=== PATIENT | male | born 1945 | race Caucasian/White ===

== ENCOUNTER → 2018-06-11 | Day surgery (SDC) | payer MEDICARE, BC ==
[2018-06-07 09:44] VITALS: BMI 28.0
--- NOTE | 2018-06-10 21:27 | HP ---
HISTORY OF PRESENT ILLNESS: Mr. Sharp is a pleasant 72-year-old man presenting for discussion of in termittent severe right lower back, buttock, and posterior thigh pain that are brought on with travel and prolonged sitting. He has an MRI from the [facility] [place] reveals calcified disk and osteophy te at L5 impinging the descending S1 nerve root on the right side symptoms well. Today, he act ually feels well, but again this is a waxing and waning pain. He hopes to move forward with navya garcia definitive in terms of treatment. PAST MEDICAL HISTORY: Significant for melanoma, hyperlipidemia, anxiety, gout. PAST SURGICAL HISTORY: Melanoma resection. CURRENT MEDICATIONS: Diclofenac, meloxicam, lovastatin, sertraline, allopurinol, leflunomide. ALLERGIES: No known drug allergies. PHYSICAL EXAMINATION: NEUROLOGIC: Patient is alert and oriented x3. Gait is normal, no ataxia. Lower extremity is normal. ASSESSMENT: Lumbar radiculopathy. PLAN: Dr. Cobos met with the patient, reviewed imaging ultimately advocated for right L5 decompressi on. He explained to the patient the risks, benefits, and alternatives to the procedure. The patient expressed understanding and would like to move forward with surgery as discussed. I do believe the patient is mentally competent and capable of making medical decisions for himself. We will move yoselin bowie with surgery as planned.
[~2018-06-11] MED LIST: Bupivacaine HCl 0.5%/Epinephrine 1:200,000/PF 30 ml Vial ONE; CEFAZOLIN/Water 2 GM/20 ML SYRINGE ONE; Fentanyl 100 MCG/2 ML VIAL ONE; Glycopyrrolate 0.2 MG/ML 5 ML SYRINGE ONE; HYDROcodone/Acetaminophen 5/325 mg Tablet ONE; Lidocaine 1% PF 5 ML VIAL ONE; Ondansetron HCl/PF 4 MG/2 ML Vial ONE; PROPOFOL 200 MG/20 ML VIAL ONE; Tamsulosin HCl 0.4 MG CAP ONE; ePHEDrine/0.9% NaCl/PF SYRINGE 50 mg/10 ml ONE
--- NOTE | 2018-06-11 11:38 | OP ---
DATE OF PROCEDURE: 06/11/2018 SURGEON: Ariel Cobos M.D. FREIGHT SERVICE INSPECTOR: Silver Peres PA-C. INDICATION: Pain. DIAGNOSIS: Lumbar radicuopathy. PROCEDURE: L5 decompression. ANESTHESIA: General. TECHNIQUE: The patient was brought into the operating room and placed under anesthesia. He was flip ped from a supine to prone position on the operating room table. A linear incision was planned over the L5 segment. After prepping and draping and after an appropriate operative pause, the incision wa s created. The soft tissues were swept away from midline. A self-retaining retractor was placed in the wound for optimal exposure. After confirming the appropriate level with C-arm fluoroscopy, an Ad son rongeur was used to remove the spinous process of L5 in the superior aspect of S1. Kerrisons wer e then used to perform a laminectomy of L5 which extended laterally to encompass the medial aspect of the facet joint down to the level of the pedicle. The laminectomy was extended inferiorly to encomp ass the medial third of S1 to ensure adequate decompression of sacral nerve roots. The wound was the n irrigated. Hemostasis was maintained throughout. The wound was then closed in anatomic layers and a pressure dressing was applied. There were no known procedural complications.
--- NOTE | 2018-06-13 21:10 | EKG ---
Test Reason : PREOP Blood Pressure : / mmHG Vent. Rate : 072 BPM Atrial Rate : 072 BPM P-R Int : 160 ms QRS Dur : 072 ms QT Int : 382 ms P-R-T Axes : 054 -06 053 degrees QTc Int : 418 ms Normal sinus rhythm Normal ECG No previous ECGs available Confirmed by Román GUERRIER ([id number]) on 06/13/2018 9:10:15 PM Referred By: [facility] Confirmed By:Román GUERRIER
== END ==
LOC: SDC 06:38
PROVIDERS: ATTEND Neurological Surgery
PROC: 01NB0ZZ Release Lumbar Nerve, Open Approach (ICD-10-PCS; principal; 2018-06-11)
DX: M54.16 Radiculopathy, lumbar region (principal); E78.5 Hyperlipidemia, unspecified; M10.9 Gout, unspecified; Z79.899 Other long term (current) drug therapy
CPT/HCPCS: 36416; 76001; 93005; 93010; 96374; J0670; J2001; J2405; J2704; J3010

== ENCOUNTER 2022-12-30 08:39 | Outpatient (CLI) | payer MEDICARE, BC | END 2022-12-30 08:40 | disposition home or self-care (01) | LOC: BICMAMMO 08:39 | PROVIDERS: ATTEND Family Medicine | DX: M81.0 Age-related osteoporosis without current pathological fracture (principal); M85.851 Other specified disorders of bone density and structure, right thigh; M85.852 Other specified disorders of bone density and structure, left thigh | CPT/HCPCS: 77080 ==